=== PATIENT | male | born 1995 | race Caucasian/White ===

== ENCOUNTER 2017-03-19 09:48 | Emergency (ER) | payer BC ==
[~2017-03-19] VITALS: Ht 172.7 cm; Wt 63.0 kg
[2017-03-19 09:55] VITALS: TEMP 36.8; Ht 172.7 cm; Wt 63.0 kg
[2017-03-19] MEDS ORDERED: MoRPHine SULFATE 4 MG/ML 1 ML CARP\\VIAL IV STA (10:07)
[2017-03-19] MEDS ORDERED: ONDANSETRON INJ 2 MG/ML 2 ML VIAL IV STA (10:07)
[2017-03-19] MEDS ORDERED: SODIUM CHLORIDE 0.9% 1000ML 1,000 ML IV STA ×2 (10:07→10:10)
[2017-03-19 10:28] LABS: BASO % 0.6 %; BASO ABS # 0.05 K/uL (0-0.2); EOS % 2.3 %; EOS ABS # 0.19 K/uL (0-0.5); HEMATOCRIT 46.4 % (42-52); HEMOGLOBIN 15.9 g/dL (14.0-18.0); IG# 0.01 K/uL (0.00-0.02); LYMPH % 34.2 %; LYMPH ABS # 2.81 K/uL (1.2-3.4); MEAN CELL VOLUME 88.4 fL (80-100); MEAN CORPUSCULAR HEMOGLOBIN 30.3 pg (25-34); MEAN CORPUSCULAR HGB CONC 34.3 g/dl (32-36); MEAN PLATELET VOLUME 9.6 fL (7.4-10.4); MONO % 8.8 %; MONO ABS # 0.72 K/uL (0.11-0.59); NEUT ABS # 4.43 K/uL (1.4-6.5); PLATELET COUNT 294 K/uL (130-400); RED CELL DISTRIBUTION WIDTH CV 12.5 % (11.5-14.5); RED CELL DISTRIBUTION WIDTH SD 39.9 fL (36.4-46.3); WHITE BLOOD COUNT 8.21 K/uL (4.8-10.8)
[2017-03-19] MEDS ORDERED: MoRPHine SULFATE 10 MG/ML CARP/VIAL IV STA (10:30)
[2017-03-19 10:47] LABS: ALBUMIN 4.1 gm/dl (3.4-5.0); CALCIUM 9.4 mg/dl (8.5-10.1); CREATININE 1.07 mg/dl (0.60-1.40); POTASSIUM 3.3 mmol/L (3.5-5.1)
[2017-03-19 10:49] LABS: TOTAL PROTEIN 7.9 gm/dl (6.4-8.2)
--- NOTE | 2017-03-19 11:08 | DIAGNOSTIC IMAGING REPORT ---
ABDOMEN AND PELVIS CT WITHOUT CONTRAST CT DOSE: 373.60 mGy.cm HISTORY: RIGHT FLANK PAIN TECHNIQUE: Multiaxial CT images of the abdomen and pelvis were performed without the use of intravenous and oral contrast according to the standard department stone protocol. A dose lowering technique was utilized adhering to the principles of ALARA. COMPARISON STUDY: None. FINDINGS: There is a 2 mm calcific within the right deep pelvis on image 358 which appears be located within the distal right ureter near the ureterovesical junction. There is mild thickening and mild fullness within the right ureter. However, there is no significant hydronephrosis. No renal calculi identified. The appendix is only partially visualized but appears to be unremarkable. Normal bladder. No bowel wall thickening or obstruction on this noncontrast study. The unenhanced liver, gallbladder, spleen, adrenal glands, and pancreas are unremarkable. No retroperitoneal lymphadenopathy. No pelvic free fluid. The lung bases are clear. No fractures within the visualized osseous structures. IMPRESSION: A 2 mm stone within the distal right ureter near the ureterovesical junction with mild fullness within the right ureter. No kenny hydronephrosis. Electronically signed by: Nabil Samuel M.D. 03/19/2017 11:06 AM Dictated Date/Time: 03/19/2017 11:01 AM
[2017-03-19 11:43] VITALS: BP 133/66; PULSE 78; O2SAT 100
[2017-03-19] MEDS ORDERED: ONDA4TAB10 SL (11:44)
[2017-03-19] MEDS ORDERED: TAMS0.4C38 PO (11:44)
[2017-03-19] MEDS ORDERED: HYDR-5688 PO (11:44)
[2017-03-19] MEDS ORDERED: TAMSULOSIN HCL 0.4 MG CAP PO ONE (11:45)
--- NOTE | 2017-03-19 11:46 | EMERGENCY ROOM VISIT NOTE ---
ED Visit Note First contact with patient: 10:01 CHIEF COMPLAINT: Sudden onset right flank pain, nausea and vomiting one hour ago HISTORY OF PRESENT ILLNESS: Patient is an otherwise healthy 21 year old white male who presents to the emergency department for evaluation of right flank pain with the nausea and vomiting. He states that his symptoms started abruptly about one hour ago while in class. He notes a constant, severe pain in his right flank that radiates slightly to the abdomen. He reports associated nausea, and vomited upon arrival in the emergency department. He rates his pain a 10/10. He had an episode of diarrhea this morning after the pain started. He denies hematuria, but does have a sense that he feels like he needs to urinate. He denies ever having symptoms similar to this previously. No personal or family history of kidney stones or gallbladder disease. No abdominal surgeries. Patient reports that he has been feeling well otherwise and was in his usual state of health until his symptoms started. REVIEW OF SYSTEMS: Review of systems as per HPI. All other systems reviewed were negative. 10 systems reviewed. PMH: Electronic medical records are reviewed and summarized as above/below. See Problem List. SOCIAL HISTORY: Patient patient is a college student from near [place] who lives locally. Nonsmoker. PHYSICAL EXAM: Vital Signs: Reviewed Nurse's notes. CONSTITUTIONAL: Patient is an obviously uncomfortable, otherwise pleasant 21- year-old white male who is awake and alert and in moderate distress due to his stated complaint. He had vomited triage. EYES: Pupils equal, round, reactive to light and accommodation. EOMs intact without nystagmus. Sclera are anicteric. ENT: Tympanic membranes intact, with normal landmarks. External canals are clear. Oral and nasopharynx are clear. Mucous membranes are moist, no lesions , tongue and gums appear normal. CARDIOVASCULAR: Regular rate and rhythm, with normal S1 and S2, no murmur or gallop or rub is heard. No carotid bruits auscultated. No JVD. Peripheral pulses easily palpable. RESPIRATORY: Breath sounds equal and clear to auscultation without wheezes, rales, or rhonchi heard. Full and equal chest expansion without accessory muscle use or retractions. INTEGUMENTARY: No lesions or rash, normal skin turgor. LYMPH: No lymphadenopathy. EMERGENCY DEPARTMENT COURSE: The patient was seen and evaluated as above. Old records were reviewed. IV lock was initiated and he was medicated with morphine 4 mg and Zofran 4 mg IV. This proved to be ineffective however, and he received and additional morphine 6 mg IV with good relief of his pain. CBC with differential, CMP, lipase and urine dip were collected. Urine dip noted trace blood only. Given the sudden onset of flank pain that appeared colicky in nature, CT scan of the abdomen and pelvis without contrast was ordered. Laboratory studies noted a normal white count, no anemia. Electrolytes were without gross abnormalities. LFTs and lipase are normal. Urine dip was not indicative of infectious process. CT scanning of the abdomen and pelvis noted a 2 mm right ureteral calculus at the level of the right UVJ. Diagnostic imaging studies were reviewed with the patient. Conservative care measures were discussed. He was Flomax 4 mg orally. He felt much improved, tolerated oral fluids in the emergency department. He was issued a urine strainer. He was prescribed oxycodone, Zofran and Flomax. He was educated on the worrisome signs or symptoms for which she should return to the emergency department. The patient was discharged home in the care of a male friend in good condition. He rated his pain a 2/10 at discharge. Vital signs are stable. Differential diagnoses entertained included UTI, pyelonephritis, renal colic, shingles, appendicitis, bowel obstruction, perforation, musculoskeletal pain, hernia, among others. Medication reconciliation: I attest that I have personally reviewed the patient' s current medication list. Blood pressure screening : Patient was found to have normal blood pressure on screening and does not require follow-up. Patient was reviewed in the [facility] Prescription Drug Monitoring Program, and there were no record noted. ABDOMEN AND PELVIS CT WITHOUT CONTRAST CT DOSE: 373.60 mGy.cm HISTORY: RIGHT FLANK PAIN TECHNIQUE: Multiaxial CT images of the abdomen and pelvis were performed without the use of intravenous and oral contrast according to the standard department stone protocol. A dose lowering technique was utilized adhering to the principles of ALARA. COMPARISON STUDY: None. FINDINGS: There is a 2 mm calcific within the right deep pelvis on image 358 which appears be located within the distal right ureter near the ureterovesical junction. There is mild thickening and mild fullness within the right ureter. However, there is no significant hydronephrosis. No renal calculi identified. The appendix is only partially visualized but appears to be unremarkable. Normal bladder. No bowel wall thickening or obstruction on this noncontrast study. The unenhanced liver, gallbladder, spleen, adrenal glands, and pancreas are unremarkable. No retroperitoneal lymphadenopathy. No pelvic free fluid. The lung bases are clear. No fractures within the visualized osseous structures. IMPRESSION: A 2 mm stone within the distal right ureter near the ureterovesical junction with mild fullness within the right ureter. No kenny hydronephrosis. Current/Historical Medications Scheduled Tamsulosin Hcl (Flomax), 0.4 MG PO DAILY Scheduled PRN Hydrocodone/Acetaminophen 5MG/325MG ([place] 5MG/325MG), 1-2 TABLETS PO Q4 PRN for Pain Ondasetron Odt (Zofran Odt), 4 MG SL Q6H PRN for Nausea or Vomiting Allergies Coded Allergies: No Known Allergies (Unverified , 03/19/17) Vital Signs Date Time Temp Pulse Resp B/P (MAP) Pulse Ox O2 Delivery O2 Flow Rate FiO2 03/19/17 11:43 78 20 133/66 100 03/19/17 10:37 57 20 112/78 99 03/19/17 10:21 52 20 120/73 99 Room Air 03/19/17 09:55 36.8 73 18 158/92 100 Room Air Laboratory Results 03/19/17 10:05 Red Blood Count 5.25, Mean Corpuscular Volume 88.4, Mean Corpuscular Hemoglobin 30.3, Mean Corpuscular Hemoglobin Concent 34.3, Mean Platelet Volume 9.6, Neutrophils (%) (Auto) 54.0, Lymphocytes (%) (Auto) 34.2, Monocytes (%) (Auto) 8.8, Eosinophils (%) (Auto) 2.3, Basophils (%) (Auto) 0.6, Neutrophils # (Auto) 4.43, Lymphocytes # (Auto) 2.81, Monocytes # (Auto) 0.72, Eosinophils # (Auto) 0.19, Basophils # (Auto) 0.05 03/19/17 10:05 Test 03/19/17 10:05 White Blood Count 8.21 K/uL (4.8-10.8) Red Blood Count 5.25 M/uL (4.7-6.1) Hemoglobin 15.9 g/dL (14.0-18.0) Hematocrit 46.4 % (42-52) Mean Corpuscular Volume 88.4 fL (80-100) Mean Corpuscular Hemoglobin 30.3 pg (25-34) Mean Corpuscular Hemoglobin Concent 34.3 g/dl (32-36) Platelet Count 294 K/uL (130-400) Mean Platelet Volume 9.6 fL (7.4-10.4) Neutrophils (%) (Auto) 54.0 % Lymphocytes (%) (Auto) 34.2 % Monocytes (%) (Auto) 8.8 % Eosinophils (%) (Auto) 2.3 % Basophils (%) (Auto) 0.6 % Neutrophils # (Auto) 4.43 K/uL (1.4-6.5) Lymphocytes # (Auto) 2.81 K/uL (1.2-3.4) Monocytes # (Auto) 0.72 K/uL (0.11-0.59) Eosinophils # (Auto) 0.19 K/uL (0-0.5) Basophils # (Auto) 0.05 K/uL (0-0.2) RDW Standard Deviation 39.9 fL (36.4-46.3) RDW Coefficient of Variation 12.5 % (11.5-14.5) Immature Granulocyte % (Auto) 0.1 % Immature Granulocyte # (Auto) 0.01 K/uL (0.00-0.02) Anion Gap 7.0 mmol/L (3-11) Est Creatinine Clear Calc Drug Dose 97.3 ml/min Estimated GFR () 114.4 Estimated GFR (Non- 98.7 BUN/Creatinine Ratio 11.9 (10-20) Calcium Level 9.4 mg/dl (8.5-10.1) Total Bilirubin 0.6 mg/dl (0.2-1) Aspartate Amino Transf (AST/SGOT) 16 U/L (15-37) Alanine Aminotransferase (ALT/SGPT) 23 U/L (12-78) Alkaline Phosphatase 81 U/L (45-117) Total Protein 7.9 gm/dl (6.4-8.2) Albumin 4.1 gm/dl (3.4-5.0) Globulin 3.8 gm/dl (2.5-4.0) Albumin/Globulin Ratio 1.1 (0.9-2) Lipase 104 U/L (73-393) Medications Administered Medications (Trade) Dose Ordered Sig/Isra Route Start Time Stop Time Status Last Admin Dose Admin Ondansetron HCl (Zofran Inj) 4 mg NOW STAT IV 03/19/17 10:07 03/19/17 10:08 DC 03/19/17 10:13 4 MG Morphine Sulfate (MoRPHine SULFATE INJ) 4 mg NOW STAT IV 03/19/17 10:07 03/19/17 10:08 DC 03/19/17 10:13 4 MG Sodium Chloride 1,000 ml @ 999 mls/hr Q1H1M STAT IV 03/19/17 10:07 03/19/17 11:07 DC 03/19/17 10:13 999 MLS/HR Sodium Chloride 1,000 ml @ 999 mls/hr Q1H1M STAT IV 03/19/17 10:10 03/19/17 11:10 DC 03/19/17 10:37 999 MLS/HR Morphine Sulfate (MoRPHine SULFATE INJ) 6 mg NOW STAT IV 03/19/17 10:30 03/19/17 10:31 DC 03/19/17 10:36 6 MG Tamsulosin HCl (Flomax Cap) 0.4 mg NOW ONCE PO 03/19/17 11:45 03/19/17 11:46 DC 03/19/17 11:43 0.4 MG Departure Information Impression Primary Impression: Right ureteral calculus Prescriptions Ondasetron Odt (ZOFRAN ODT) 4 Mg Tab 4 MG SL Q6H Y for Nausea or Vomiting, #20 TAB Prov: Cleo Baca PA 03/19/17 Hydrocodone/Acetaminophen 5MG/325MG ([place] 5MG/325MG) Tab 1-2 TABLETS PO Q4 Y for Pain, #20 TAB For Initial Treatment Prov: Cleo Baca PA 03/19/17 Tamsulosin Hcl (FLOMAX) 0.4 Mg Cap 0.4 MG PO DAILY, #10 CAP Prov: Cleo Baca PA 03/19/17 Referrals No Doctor, Assigned (PCP) Patient Instructions My [facility] Additional Instructions DO NOT drive, drink alcohol, operate machinery, or perform dangerous activities today. You were given medications in the ER that can affect your ability to safely function or operate a vehicle. Oxycodone Immediate Release (OxyIR) 5mg: Take 1-2 pills every four hours for pain. Avoid alcohol, operating machinery or dangerous equipment, working on ladders or roofs, DRIVING, or situations where being under the influence may be dangerous. It is recommended to use an bkaw-wyd-yytmvze stool softener such as Colace, 100mg twice daily while taking this medication to avoid constipation. Zofran(odansetron) tablets 4mg: Take one and allow it to dissolve in your mouth every four to six hours as needed for nausea or vomiting. Flomax 0.4 mg: Take one tablet daily for one week or until the stone passes. Ibuprofen(Motrin, Advil) may be used for fever or pain. Use 600mg every six hours as needed. Take with food. Avoid using more than 2400mg in a 24 hour period. Do not use 2400mg per day for more than three consecutive days without physician direction. Prolonged inappropriate use can lead to stomach upset or ulcers. This medication can be taken if you need to drive, work, or perform activities which may be dangerous when taking narcotic pain medication. (AND/OR) Acetaminophen(Tylenol) may be used for fever or pain. Use 1000mg every six hours as needed. Avoid using more than 4000mg in a 24 hour period. This medication can be taken if you need to drive, work, or perform activities which may be dangerous when taking narcotic pain medication. Strain your urine and collect all the stones or debris for the urologists. Rest and avoid strenuous activity until your stone passes and symptoms resolve. Drink plenty of fluids. Continue current medications. Return to the ER for worsening abdominal or back pain, vomiting, fevers, passing out, or as needed. Follow up with your primary care physician for recheck.
== END 2017-03-19 12:10 | disposition home or self-care (01) ==
LOC: C.EDB 09:49 → C.EDA 12:10
DX: N20.1 Calculus of ureter (principal)